=== PATIENT | male | born 1955 | race Caucasian/White ===

== ENCOUNTER 2023-11-19 11:18 | Emergency (ER) | payer OTHER, MEDICARE, SELFPAY ==
[2023-11-19 11:21] VITALS: BP 145/65
--- NOTE | 2023-11-19 12:11 | ED.GENMED ---
History of Present Illness
General
Chief Complaint: Musculo-Skeletal Complaint
Source: patient
Exam Limitations: none
Time Seen by Provider: 11/19/23 11:57
History of Present Illness
History of Present Illness:
See MDM
Past History
Past History
ED Past Medical History: Arrthythmia (Atrial fib), HTN and Other (Sleep apnea)
ED Past Surgical History: Cardiac (Ablation)
Social History
Tobacco: Non-smoker
Alcohol: None
Personal:
Living: with family
Phy Exam
Physical Exam
Physical Exam:
See MDM
Course
Orders/Labs/Results
Orders:
Orders
11/19/23 11:25
Knee, Right 4 or More Views [CR Knee- Right 4 Or More View*] Urgent
Comment:
Reason For Exam: injury
11/19/23 12:09
Ketorolac [Toradol] 30 mg IM NOW STA
Tramadol HCl [Ultram] 25 mg PO NOW STA
11/19/23 12:10
US Periph Venous LOWER Ext RT Urgent
Comment:
Reason For Exam: pain behind R knee
11/19/23 12:59
Tramadol HCl [Ultram] 50 mg PO NOW STA
Vital Signs
Initial and Last Documented VS:
Initial Vital Signs
Temp Pulse Resp BP Pulse Ox
98.2 F 65 16 145/65 98
11/19/23 11:21 11/19/23 11:21 11/19/23 11:21 11/19/23 11:21 11/19/23 11:21
Last Documented Vital Signs
Temp Pulse Resp BP Pulse Ox
98.2 F 65 16 145/65 98
11/19/23 11:21 11/19/23 11:21 11/19/23 11:21 11/19/23 11:21 11/19/23 11:21
MDM/Problems Addressed
Differential Diagnosis Includes:
HPI and MDM Narrative:
68-year-old male presenting with right knee injury. Patient states he was walking down the steps when he twisted his knee. He is having trouble weightbearing.
On exam, x-ray was done before September. X-ray negative for acute pathology. We did discuss the arthritic changes. On exam, there is pain in the popliteal fossa. The joint is stable and without effusion. No pain with calf stretching
Will obtain ultrasound to rule out Reece's cyst but discussed likely muscle/knee strain
Physical exam
General: Well appearing and non-toxic
HEENT: protecting airway
Neck: appears supple
CV: No evidence of cyanosis
Resp: No accessory muscle use
Abd: Non-distended
Extremities: No deformities. Mild tenderness to the popliteal fossa. No skin changes. Knee joint stable. Sensation grossly intact.
Neuro: alert
Psych: Normal affect
Skin: Intact
Problems Addressed including Acute and Chronic Conditions affecting care:
1. Right knee pain
Acuity: acute
Prognosis: stable
Details: X-ray negative for fracture. Will obtain ultrasound to rule out Reece's cyst
Updates
Ultrasound confirms Reece's cyst. Discussed pain control and return precautions and follow-up with orthopedic
Differential Diagnosis (but not limited to): Reece's cyst, knee sprain, muscle strain
Testing considered:
Drug therapy (if applicable): OTC meds, please see d/c instruction regarding Rx drugs
Amount and/or Complexity of Data Reviewed
Clinical info obtained from: Patient
External data reviewed: N/A
Labs I independently reviewed (but not limited to): N/A
Radiology: X-ray independently reviewed: Knee x-ray without fracture
Ultrasound report reviewed
Pulse Ox: not hypoxic
EKG independently reviewed: N/A
Slot Ambassador: N/A
Critical Care: N/A
Risk of Complication:
Social Determinants of health: Good social support
Discussed with other providers: N/A
Escalation of Care includes Admit/Obs: After being observed in the Emergency Department, pt stable for discharge.
Occasional wrong word or 'sound a like' substitutions may have occurred due to the inherent limitations of voice recognition software. Read the chart carefully and recognize, using context, where substitutions have occurred.
*Critical Care Note
Total Time (30-74mins, 75-104mins- exclusive of procedures): Not Applicable
ED Attending Note
-
Portions of this chart may have been created with voice recognition software.� Occasional wrong word or��sound alike� substitutions may have occurred due to the inherent limitations of voice recognition software.
Discharge Plan
Departure
Patient Disposition: Home (Routine Discharge)
Date of Disposition: 11/19/23
Time of Disposition: 13:33
Patient with high blood pressure during this ER visit?: Yes
Discharge Problem:
Reece's cyst
Instructions: Reece's Cyst (DC), BLOOD PRESSURE
Prescriptions:
New
tramadol 50 mg tablet
25 mg PO BID PRN (Reason: pain) Qty: 10 0RF
No Action
Eliquis 5 MG tablet
5 mg PO BID
lisinopril 20 mg Tablet
20 mg PO DAILY
spironolactone 25 mg Tablet
25 mg PO DAILY
indapamide 1.25 mg Tablet
1.25 mg PO DAILY
multivitamin Tablet
1 tab PO DAILY
sotalol 80 mg Tablet
80 mg PO BID
pantoprazole 40 mg Tablet,Delayed Release (Dr/Ec)
40 mg PO DAILY Qty: 14 0RF
Rx Instructions:
take daily for 2 weeks post procedure, then stop
amlodipine 10 mg Tablet
10 mg PO DAILY Qty: 90 3RF
Referrals:
Óscar Calle MD [Active] -
PRIVATE,PHYSICIAN [Family Provider] -
Activity Restrictions/Additional Instructions:
Please rest it is much as you can. If symptoms persist, please follow-up with orthopedist. Return for worsening symptoms.
You were given a prescription for narcotics. If you require this pain medicine, please take a daily [id number] stool softener to avoid constipation.
Interventions
Interventions:
*Risk Screen - Suicide Last Done: 11/19/23 11:27
*General Assessment Last Done: 11/19/23 11:27
*Neglect/Abuse Screening Last Done: 11/19/23 11:27
*ED COVID-19 Vaccine History Last Done: 11/19/23 11:27
Discharge Date and Time
Print Language: [id number]
[2023-11-19] MEDS: TORADOL 30 MG IM (13:21)
[2023-11-19] MEDS: ULTRAM 50 MG PO (13:22)
== END 2023-11-19 14:08 | disposition home or self-care (01) ==
LOC: EMR 11:18
PROVIDERS: EMERGENCY PHYSICIAN Student in an Organized Health Care Education/Training Program
DX: M71.21 Synovial cyst of popliteal space [Baker], right knee (principal); I10 Essential (primary) hypertension
CPT/HCPCS: 99284; 96372; 73564; 93971

== ENCOUNTER → 2024-02-16 14:22 | Outpatient (REF) | payer OTHER, MEDICARE, SELFPAY | LOC: RAD 14:22 | PROVIDERS: ATTENDING PHYSICIAN Radiology Diagnostic Radiology; FAMILY PHYSICIAN Specialist | DX: T15.80XA Foreign body in other and multiple parts of external eye, unspecified eye, initial encounter (principal) | CPT/HCPCS: 70030 ==